=== PATIENT | female | born 1995 | race Caucasian/White ===

== ENCOUNTER 2020-02-14 00:05 | Emergency (ER) | payer BC, SELFPAY ==
--- NOTE | ~2020-02-14 | XR_ITS ---
EXAMINATION: XR chest 1V portable DATE: 02/14/2020 00:40 INDICATION: Midline and left-sided chest pain TECHNIQUE: frontal view of the chest was obtained. COMPARISON: Chest radiograph dated 01/01/2017 FINDINGS: The lungs are clear with no focal airspace opacities, pulmonary edema, pleural effusion or pneumothor ax. The cardiomediastinal silhouette is normal. Visualized bones and soft tissues are unremarkable. IMPRESSION: 1. No acute cardiopulmonary disease. Reviewed, dictated and finalized at location [facility]
[2020-02-14 00:11] VITALS: BP 128/87; PULSE 68; RESP 17; TEMP 36.6; O2SAT 99
--- NOTE | 2020-02-14 00:19 | ECG_ITS ---
Measurements Intervals Stewart Rate: 66 P: 32 WA: 149 QRS: 15 QRSD: 109 T: 5 QT: 412 QTc: 434 Interpretive Statements SINUS RHYTHM ATRIAL PREMATURE COMPLEX MINIMAL Q WAVES- HIGH LATERAL LEADS BORDERLINE T WAVE ABNORMALITY- INFERIOR LEADS BASELINE ARTIFACT- I, III, AVL, AVF BORDERLINE ECG Electronically Signed On 02-14-2020 7:16:13 MESMERIST by Leif Huerta D.O.
--- NOTE | 2020-02-14 00:25 | ED.CHESTPAIN ---
HPI - Chest Pain General Chief Complaint: Chest Pain Stated Complaint: cp Time Seen by Provider: 02/14/20 00:09 Source: patient Mode of arrival: ambulatory Limitations: no limitations History of Present Illness HPI narrative: This patient is a 24 year old healthy female who presents for evaluation of chest pain. She states starting an hour ago she developed tightness located under her left breath that radiated to substernal. This pain has been waxing and waning. She took acetaminophen for her pain 45 minutes ago. She reports her pain has resolved. She denies sob, cough, fever, nausea or vomiting. She does state taking a breathing makes her pain worse. She denies history of similar pain in the past. Related Data Allergies Allergy/AdvReac Type Severity Reaction Status Date / Time No Known Allergies Allergy Verified 07/25/18 13:11 Review of Systems Review of Systems: All systems reviewed & are unremarkable except as noted in HPI and below Constitutional: Constitutional: Denies chills and Denies fever(s) Cardiovascular: Cardiovascular: Reports chest pain and Denies rapid heart rate Respiratory: Respiratory: Denies cough and Denies dyspnea Gastrointestinal: Gastrointestinal: Denies abdominal pain, Denies diarrhea, Denies nausea and Denies vomiting Musculoskeletal: Musculoskeletal: Denies muscle cramps PMFSH Past Medical History Medical History (Updated 02/14/20 @ 04:59 by Dominique Nevarez MD) Patient denies medical problems Surgical History Surgical History (Updated 02/14/20 @ 00:28 by Dominique Nevarez MD) Hx of appendectomy Social History Social History (Updated 02/14/20 @ 00:28 by Dominique Nevarez MD) Smoking status: Never smoker Alcohol intake: current Alcohol use details: socially Substance use: never Exam Const: General: no acute distress and alert Orientation/consciousness: patient oriented x3 HENMT: Head: normocephalic and atraumatic Face and sinus: sinuses nontender and face symmetric Mouth: Yes Normal oral and palatal mucosa present, Yes lip normal, Yes oropharynx normal and Yes moist mucous membranes Throat: posterior oropharynx normal, tonsils normal and uvula midline Eyes: EOM: EOMs intact bilaterally Chest: Chest palpation & inspection: normal inspection of the chest Resp: Effort & Inspection: normal respiratory effort, no retractions and no use of accessory muscles Auscultation: clear to auscultation bilaterally Cardio: Rate: regular rate Rhythm: regular rhythm Heart sounds: no murmurs GI: GI Palp: Yes Soft to palpation, No Tenderness to palpation present (GI), No Guarding due to palpation present (GI) and No Rigid due to palpation Auscultation: normal bowel sounds Skin: General skin exam: normal color Rashes: no rashes Neuro: General: patient oriented x3 and moves all extremities Psych: Mental Status: mental status grossly normal Affect: normal affect Course Reevaluation(s) Reevaluation #1: PAtient states her pain is still resolved. Date: 02/14/20 Time: 03:11 Vital Signs Vital signs: Vital Signs Temperature 98 F 02/14/20 00:11 Pulse Rate 68 02/14/20 00:11 Respiratory Rate 17 02/14/20 00:11 Blood Pressure 128/87 02/14/20 00:11 Pulse Oximetry 99 02/14/20 00:11 Temperature 98.8 F 02/14/20 05:12 Pulse Rate 61 02/14/20 05:12 Respiratory Rate 16 02/14/20 05:12 Blood Pressure 132/72 02/14/20 05:12 Pulse Oximetry 97 02/14/20 05:12 MDM - Chest Pain Lab Data Attestation: I reviewed the patient's lab results. Result diagrams: 02/14/20 00:32 02/14/20 00:32 Labs: Lab Results 02/14/20 02/14/20 02/14/20 Range/Units 00:32 00:32 00:32 WBC 8.9 (4.5-10.0) K/mm3 RBC 4.39 (4.2-5.4) M/mm3 Hgb 12.4 (12.0-15.0) g/dL Hct 36.3 L (37.0-47.0) % MCV 82.7 (80-100) fl MCH 28.2 (26-34) pg MCHC 34.2 (32-36) g/dl RDW 13.2 (11.5-14.5) % Plt Count
[2020-02-14] MEDS: ASPIRIN 81 MG CHEWABLE TABLET 324 MG PO (00:35)
[2020-02-14 00:37] VITALS: PULSE 81; O2SAT 100
[2020-02-14 00:41] LABS: Basophils Percent Auto 0.2 % (0.2-1.2); Eosinophils Absolute Auto 0.3 K/mm3 (0-0.3); Eosinophils Percent Auto 2.9 % (0-4.4); Hematocrit 36.3 % (37.0-47.0); Hemoglobin 12.4 g/dL (12.0-15.0); Immature Granulocyte Absolute 0.01 K/mm3 (0.00-0.031); Immature Granulocyte Percent A 0.1 % (0-0.5); Lymphocytes Percent Auto 50.8 % (18.3-44.2); Mean Corpuscular HGB Conc 34.2 g/dl (32-36); Mean Corpuscular Hemoglobin 28.2 pg (26-34); Mean Corpuscular Volume 82.7 fl (80-100); Mean Platelet Volume 10.1 fl (7.4-10.4); Monocytes Absolute Auto 0.9 K/mm3 (0.1-0.6); Monocytes Percent Auto 9.7 % (2.6-8.5); Neutrophils Absolute Auto 3.2 K/mm3 (1.3-6.7); Neutrophils Percent Auto 36.3 % (45.5-73.1); Platelet Count Result 306 k/mm3 (150-375); Red Blood Count 4.39 M/mm3 (4.2-5.4); Red Cell Distribution Width 13.2 % (11.5-14.5); White Blood Count 8.9 K/mm3 (4.5-10.0)
[2020-02-14 00:51] LABS: INR 0.9
[2020-02-14 00:52] LABS: Partial Thromboplastin Time 26.3 SECONDS (22.3-36.8)
[2020-02-14 00:58] LABS: Anion Gap 9 mmol/L (8-16); Blood Urea Nitrogen 12 mg/dL (7-17); Calcium 8.8 mg/dL (8.4-10.2); Carbon Dioxide 26 mmol/L (22-30); Chloride 101 mmol/L (98-107); Estimated CRCL calculation 112 ml/min; Estimated Glomerular Filt Rate > 60; Glucose 117 mg/dL (65-105); Lipase 99 U/L (23-300); Potassium 3.6 mmol/L (3.4-5.0); Sodium 136 mmol/L (137-145)
[2020-02-14 01:07] LABS: D Dimer 0.27 ug/mL (<0.48)
[2020-02-14 01:09] LABS: Troponin I < 0.012 ng/mL (0.000-0.034)
[2020-02-14 01:30] VITALS: BP 120/77; PULSE 59; RESP 17; O2SAT 98
[2020-02-14 02:41] VITALS: BP 123/66; PULSE 60; RESP 17; O2SAT 98
[2020-02-14 04:04] VITALS: BP 120/84; PULSE 75; RESP 15; O2SAT 97
[2020-02-14 04:34] LABS: Troponin I < 0.012 ng/mL (0.000-0.034)
[2020-02-14 05:12] VITALS: BP 132/72; PULSE 61; RESP 16; TEMP 37.1; O2SAT 97
== END 2020-02-14 05:14 | disposition home or self-care (01) ==
PROVIDERS: Emergency Provider General Practice; PCP Internal Medicine
DX: R07.89 Other chest pain (principal); I49.1 Atrial premature depolarization; R94.31 Abnormal electrocardiogram [ECG] [EKG]
CPT/HCPCS: 36415; 71045; 80048; 83690; 84484; 85025; 85380; 85610; 85730; 93005; 99284; A9270